=== PATIENT | male | born 1960 | race Caucasian/White ===

== ENCOUNTER → 2017-01-26 | Outpatient (CLI) | payer BC ==
--- NOTE | 2017-01-26 08:52 | RAD ---
EXAM DESCRIPTION: Shoulder,Right 2 or More Views CLINICAL HISTORY: 56 years Male, PAIN IN RIGHT SHOULDER IMPRESSION: 4 views of the right shoulder reveals mild degenerative change of the acromioclavicular joint. There is widening of the AC joint and possible osteolysis of the distal clavicle could be seen in setting of previous injury. Glenohumeral joint is unremarkable no evidence of dislocation. No fracture noted. Electronically signed by: Paul Catalan MD 01/26/2017 8:52 AM CDT
== END | disposition home or self-care (01) ==
LOC: RAD 07:52
PROVIDERS: ATTEND Orthopaedic Surgery
DX: M25.511 Pain in right shoulder (principal)

== ENCOUNTER → 2017-03-09 | Outpatient (CLI) | payer BC ==
--- NOTE | 2017-03-09 11:10 | MRI ---
EXAM DESCRIPTION: Cervical Spine CLINICAL HISTORY: IDIOPATHIC PROGRESSIVE NEUROPATHY COMPARISON: None Available. TECHNIQUE: MRI of the cervical spine is performed according to our usual protocol. FINDINGS: There is good alignment of the cervical spine. Vertebral body stature is maintained. Craniocervical junction and the cervical spinal cord are unremarkable. C2-3: No spinal canal or neuroforaminal narrowing. C3-4: Mild 2 mm broad-based posterior disc protrusion. Bilateral facet degeneration, right greater than left. Severe right and moderate left neuroforaminal narrowing. The midline diameter of the spinal canal is adequate at 11 mm. C4-5: Mild right and severe left neuroforaminal narrowing from facet and uncovertebral joint hypertrophy. The midline diameter of the spinal canal is adequate at 12 mm. C5-6: Moderate left and mild right neuroforaminal narrowing from facet and uncovertebral joint hypertrophy. No spinal canal narrowing. C6-7: 2 mm broad-based posterior disc protrusion. Severe left and moderate right neuroforaminal narrowing from facet and uncovertebral joint hypertrophy. C7-T1: The disc is well hydrated. There is no loss of height. There is no bulging. The facets are unremarkable with no significant hypertrophy. There is no stenosis or impingement. IMPRESSION: 1. Today's exam demonstrates no evidence of spinal canal narrowing or cord contact. 2. No evidence of abnormal cord signal to suggest a myelopathy at this time. 3. Multilevel neuroforaminal narrowing as described above from facet and uncovertebral joint. Electronically signed by: Paul Catalan MD 03/09/2017 11:10 AM CDT
== END | disposition home or self-care (01) ==
LOC: MRI 07:47
PROVIDERS: ATTEND Psychiatry & Neurology Neurology
DX: M48.02 Spinal stenosis, cervical region (principal); G60.3 Idiopathic progressive neuropathy; M05.89 Other rheumatoid arthritis with rheumatoid factor of multiple sites; M50.122 Cervical disc disorder at C5-C6 level with radiculopathy

== ENCOUNTER → 2017-10-28 | Outpatient (CLI) | payer BC | END | disposition home or self-care (01) | LOC: GMAM 10:23 | PROVIDERS: ATTEND Family Medicine | DX: Z12.5 Encounter for screening for malignant neoplasm of prostate (principal); E11.9 Type 2 diabetes mellitus without complications ==

== ENCOUNTER → 2018-08-11 | Outpatient (CLI) | payer BC | LOC: GMAM 17:37 | PROVIDERS: ATTEND Family Medicine | DX: R29.898 Other symptoms and signs involving the musculoskeletal system (principal) ==

== ENCOUNTER → 2018-11-22 | Outpatient (CLI) | payer BC | LOC: GMAM 16:45 | PROVIDERS: ATTEND Family Medicine | DX: Z12.5 Encounter for screening for malignant neoplasm of prostate (principal) ==

== ENCOUNTER → 2019-01-17 | Outpatient (CLI) | payer BC ==
--- NOTE | 2019-01-17 10:31 | RAD ---
Study: Three views of the bilateral hands. Indication: M79.642 Comparison: None. Impression: No acute fracture or malalignment of the right hand or left hand. If there is persistent anatomic snuffbox tenderness, repeat wrist imaging to include a scaphoid view is recommended in one week to evaluate for occult scaphoid fracture. Severe bilateral STT joint osteoarthritis with complete joint space loss. Scattered mild osteoarthritis throughout the PIP and DIP joints of the bilateral hands with more pronounced mild to moderate changes at the right third DIP joint. No osseous erosions of the right hand or left hand. Electronically signed by: Sergio Lewis MD 01/17/2019 10:28 AM CDT
== END ==
LOC: RAD 08:04
PROVIDERS: ATTEND Orthopaedic Surgery
DX: M19.041 Primary osteoarthritis, right hand (principal); M19.042 Primary osteoarthritis, left hand; M79.641 Pain in right hand; M79.642 Pain in left hand

== ENCOUNTER → 2019-06-23 | Outpatient (CLI) | payer BC ==
--- NOTE | 2019-06-23 10:15 | RAD ---
EXAM DESCRIPTION: Elbow,Left 3 Views CLINICAL HISTORY: 59 years Male, ELBOW PAIN COMPARISON: None available. FINDINGS: The visualized bones are well-mineralized.No acute fracture or dislocation. Mild degenerative changes are identified. The soft tissues appear grossly unremarkable. IMPRESSION: Mild left elbow osteoarthritis. No other bony abnormality is visualized on radiographs. Electronically signed by: Inessa Flores MD 06/23/2019 10:13 AM CDT
--- NOTE | 2019-06-23 10:15 | RAD ---
EXAM DESCRIPTION: Shoulder,Left 2 or More Views CLINICAL HISTORY: 59 years Male, SHOULDER PAIN COMPARISON: None available. FINDINGS: The visualized bones are well-mineralized.No acute fracture or dislocation. The soft tissues appear grossly unremarkable. Mild to moderate acromioclavicular joint osteoarthritis. IMPRESSION: Mild to moderate acromioclavicular joint osteoarthritis. Electronically signed by: Inessa Flores MD 06/23/2019 10:14 AM CDT
--- NOTE | 2019-06-23 10:16 | RAD ---
EXAM DESCRIPTION: Elbow,Right 3 Views CLINICAL HISTORY: 59 years Male, ELBOW PAIN COMPARISON: None available. FINDINGS: The visualized bones are well-mineralized.No acute fracture or dislocation. Minimal degenerative changes are identified. The soft tissues appear grossly unremarkable. IMPRESSION: Minimal right elbow osteoarthritis. No other bony abnormality is visualized. Electronically signed by: Inessa Flores MD 06/23/2019 10:14 AM CDT
== END ==
LOC: RAD 08:00
PROVIDERS: ATTEND Orthopaedic Surgery
DX: M19.021 Primary osteoarthritis, right elbow (principal); M19.022 Primary osteoarthritis, left elbow; M19.012 Primary osteoarthritis, left shoulder

== ENCOUNTER 2019-10-05 06:01 | Day surgery (SDC) | payer BC ==
[~2019-10-05 06:01] MED LIST: LACTATED RINGERS 1,000 ML ONE
[2019-10-05] MEDS ORDERED: PROPOFOL 200 MG/20 ML VIAL IV ONE (06:02)
[2019-10-05] MEDS ORDERED: LIDOCAINE 1% 10 ML VIAL INJ ONE (06:02)
[2019-10-05] MEDS ORDERED: LACTATED RINGERS 1,000 ML BAG IV ONE (07:20)
[2019-10-05 07:32] VITALS: TEMP 97.8
[2019-10-05 09:41] VITALS: BP 140/73; O2SAT 99
--- NOTE | 2019-10-05 09:59 | OP ---
DATE OF PROCEDURE: 10/05/19 PREOPERATIVE DIAGNOSIS: 1. History of polyps. The patient had a large sessile, serrated adenoma removed during colonoscopy in September of 2015. The prep that day was poor. One year later in 2015, the colonoscopy was repeated. The prep was better and there were no other polyps identified. Colonoscopy is being done today, three years later from the first one, because of that large sessile, serrated adenoma that was removed in 2014. POSTOPERATIVE DIAGNOSIS: 1. Descending colon polyp. 2. Sigmoid diverticulosis. 3. Internal hemorrhoids. PROCEDURE: 1. Colonoscopy plus polypectomy. SURGEON: William Chandra MD. COMPLICATIONS: None apparent. BLOOD LOSS: None. MEDICATIONS: Monitored anesthesia care. DESCRIPTION OF PROCEDURE: Informed consent was obtained prior to sedation. The preprocedure cardiopulmonary assessment was satisfactory. The patient was placed in the left lateral decubitus position and was sedated. A digital rectal exam was unremarkable. The tip of the Olympus colonoscope was inserted in the rectum and guided over to the cecum. The cecum was identified by locating the ileocecal valve and appendiceal orifice. There was some fluid and residue scattered in the colon, but I was able to successfully irrigate the crum of the colon and suction away fluid and residue. Retroflexed view in the cecum was obtained to the get the retroflexed view of the right colon. In the right colon, there was a previously placed tattoo by Dr. Goncalves during the colonoscopy in 2014. There is no residual polyp seen adjacent to the tattoo. The mucosa of the rest of the colon including the cecum, rest of the ascending colon, hepatic flexure, transverse colon, splenic flexure, descending colon, sigmoid colon and rectum were identified and examined. There was scattered diverticula in the sigmoid colon. There was one 3 mm polyp in the descending colon that was removed with a cold snare and recovered. The procedure was then terminated. There were small internal hemorrhoids noted on retroflexed view in the rectum. RECOMMENDATIONS: 1. Followup the polyp pathology. 2. Followup colonoscopy in 5 years. #[id number] cc: Kilo Ford MD [facility]
== END 2019-10-05 09:35 | disposition home or self-care (01) ==
LOC: AMB 06:01
PROVIDERS: ATTEND Internal Medicine Gastroenterology
DX: Z12.11 Encounter for screening for malignant neoplasm of colon (principal); K63.5 Polyp of colon; K57.30 Diverticulosis of large intestine without perforation or abscess without bleeding; K64.8 Other hemorrhoids; E11.9 Type 2 diabetes mellitus without complications; E78.00 Pure hypercholesterolemia, unspecified; Z86.010 Personal history of colon polyps; Z88.0 Allergy status to penicillin; Z88.8 Allergy status to other drugs, medicaments and biological substances; Z87.891 Personal history of nicotine dependence; Z79.82 Long term (current) use of aspirin; Z79.899 Other long term (current) drug therapy
CPT/HCPCS: 00812; 36416; 45385; 82948; J3490; J7120

== ENCOUNTER → 2019-11-07 | Outpatient (CLI) | payer BC ==
--- NOTE | 2019-11-07 10:18 | MRI ---
EXAM DESCRIPTION: Shoulder,Left CLINICAL HISTORY: 59 years, Male, ROTATOR CUFF SYNDROME LEFT COMPARISON: None TECHNIQUE: MRI of the left shoulder was performed with multiplanar multi sequence imaging according to our usual protocol. FINDINGS: Very high-grade articular side and interstitial partial-thickness tear distal supraspinatus anteriorly. Functionally this is almost a full-thickness tear. Delamination of articular side fibers on the order of 10 mm is present. Moderate infraspinatus tendinopathy. Subscapularis intact. No muscular atrophy. Undersurface tear glenoid labrum 12:00 position focal increased T2 signal at the base of the labrum. No displaced fragment. Long head biceps intact. No glenohumeral arthritis. Moderate AC joint arthropathy with capsular thickening and edema and periarticular reactive marrow edema. Type II acromion process. IMPRESSION: Very high-grade articular side/interstitial partial-thickness tear supraspinatus Tendinopathy infraspinatus 12:00 labral tear Electronically signed by: Christian Burgos MD 11/07/2019 10:16 AM [facility]
== END ==
LOC: MRI 07:54
PROVIDERS: ATTEND Orthopaedic Surgery
DX: M75.102 Unspecified rotator cuff tear or rupture of left shoulder, not specified as traumatic (principal); S43.432D Superior glenoid labrum lesion of left shoulder, subsequent encounter

== ENCOUNTER → 2020-07-27 | Outpatient (CLI) | payer BC | LOC: GMAM 10:37 | PROVIDERS: ATTEND Family Medicine | DX: E07.9 Disorder of thyroid, unspecified (principal); E78.2 Mixed hyperlipidemia; E11.9 Type 2 diabetes mellitus without complications ==